=== PATIENT | female | born 1985 ===

== ENCOUNTER 2017-07-09 15:09 | Emergency (ER) | payer MEDICAID ==
[2017-07-09 15:21] VITALS: BP 117/80; PULSE 71; RESP 18; TEMP 98; O2SAT 100
--- NOTE | 2017-07-09 15:54 | C.PDOC ---
History Of Present Illness I went to see this patient as soon as I signed up for her, however I could not find her anywhere in the ED. I was informed by the staff that the pt has left before being seen. Time Seen by Provider: 07/09/17 15:40 Chief Complaint (Nursing): Substance Abuse Past Medical History Vital Signs: Last Vital Signs Temp 98 F 07/09/17 15:15 Pulse 71 07/09/17 15:15 Resp 18 07/09/17 15:15 BP 117/80 07/09/17 15:15 Pulse Ox 100 07/09/17 15:15 - Medical History PMH: Asthma, Depression, HTN, Post Traumatic Stress Disorder Family History: States: Unknown Family Hx - Social History Hx Alcohol Use: No Hx Substance Use: Yes - Immunization History Hx Tetanus Toxoid Vaccination: Yes Hx Influenza Vaccination: Yes Hx Pneumococcal Vaccination: No ED Course And Treatment O2 Sat by Pulse Oximetry: 100 Disposition - Disposition Disposition: LEFT W/O BEING SEEN - ER ONLY Disposition Time: 15:54 Condition: UNKNOWN - Clinical Impression Clinical Impression: Patient left without being seen
== END 2017-07-09 15:55 | disposition left against medical advice (07) ==
LOC: C.ER 15:09
DX: Z02.89 Encounter for other administrative examinations (principal); Z00.00 Encounter for general adult medical examination without abnormal findings

== ENCOUNTER 2017-07-25 12:04 | Emergency (ER) | payer MEDICAID ==
[2017-07-25 13:07] VITALS: BP 124/82; PULSE 99; RESP 20; TEMP 98; O2SAT 96
--- NOTE | 2017-07-25 13:12 | C.PDOC ---
History Of Present Illness 31 year old female, whose PMHx includes Asthma, Hepatitis C, HTN, and depression , presents to the ED accompanied by DYFS worker and her colleague requesting heroin detox. Patient states her last use was earlier today. She reports areas of redness to her right hand, left arm, and left calf and admits that these are sites of injection. She denies fever, chills, headache, chest pain, shortness of breath, suicidal/homicidal ideation at this time. Time Seen by Provider: 07/25/17 12:25 Chief Complaint (Nursing): Substance Abuse History Per: Patient History/Exam Limitations: no limitations Onset/Duration Of Symptoms: Hrs Current Symptoms Are (Timing): Still Present Suicide/Self Injury Attempted (Context): None Modifying Factor(s): Narcotics (heroin) Associated Symptoms: denies: Suicidal Thoughts, Suicidal Plan Involuntary Hold By: None Recent travel outside of the [place]: No Additional History Per: Patient Past Medical History Reviewed: Historical Data, Nursing Documentation, Vital Signs Vital Signs: Last Vital Signs Temp 98.0 F 07/25/17 12:28 Pulse 99 H 07/25/17 12:28 Resp 20 07/25/17 12:28 BP 124/82 07/25/17 12:28 Pulse Ox 96 07/25/17 13:53 - Medical History PMH: Asthma, Depression, Hepatitis (C), HTN, Post Traumatic Stress Disorder Surgical History: No Surg Hx Family History: States: Unknown Family Hx - Social History Hx Alcohol Use: No Hx Substance Use: Yes - Immunization History Hx Tetanus Toxoid Vaccination: No Hx Influenza Vaccination: No Hx Pneumococcal Vaccination: No Review Of Systems Constitutional: Negative for: Fever, Chills Cardiovascular: Negative for: Chest Pain Respiratory: Negative for: Shortness of Breath Neurological: Negative for: Headache Psych: Positive for: Other (heroin detox ). Negative for: Suicidal ideation Physical Exam - Physical Exam Appears: Non-toxic, No Acute Distress, Other (groggy, obese ) Skin: Warm, Dry, Other (round, erythematous patches to dorsum of right hand, volar aspect of left arm, and left calf) Head: Atraumatic, Normacephalic Eye(s): bilateral: Normal Inspection Oral Mucosa: Moist Neck: Supple Chest: Symmetrical, No Deformity, No Tenderness Cardiovascular: Rhythm Regular, No Murmur Respiratory: Normal Breath Sounds, No Rales, No Rhonchi, No Wheezing Extremity: Normal ROM, Capillary Refill (less than 2 seconds ) Neurological/Psych: Oriented x3, Normal Speech, Normal Cognition ED Course And Treatment O2 Sat by Pulse Oximetry: 96 (on RA) Pulse Ox Interpretation: Normal Medical Decision Making Medical Decision Making: Progress: Patient is informed about the unavailability of detox beds at this time. She will be provided with a list of detox centers for further inquiry. Advised to return to the ED if symptoms persist or worsen. Disposition Counseled Patient/Family Regarding: Diagnosis, Need For Followup, Rx Given - Disposition Referrals: [facility] [Outside] Disposition: HOME/ ROUTINE Disposition Time: 13:10 Condition: STABLE Additional Instructions: Follow up with your doctor, our clinic and the recourses given by the crisis team. Prescriptions: Sulfamethoxazole/Trimethoprim [Bactrim DS 800 mg-160 mg] 1 tab PO BID #14 tab Instructions: Cellulitis (Skin Infection), Adult (DC), Polysubstance Abuse (DC) Forms: General Discharge Instructions, [facility] (Macedonian), Work Excuse - POA Present On Arrival: None - Clinical Impression Clinical Impression: Drug abuse, Cellulitis - Scribe Statement The provider has reviewed the documentation as recorded by the Scribe (Deysi Duenas) Provider Attestation: All medical record entries made by the Scribe were at my direction and personally dictated by me. I have reviewed the chart and agree that the record accurately reflects my personal performance of the history, physical exam, medical decision making, and the department course for this patient. I have also personally directed, reviewed, and agree with the discharge instructions and disposition.
== END 2017-07-25 13:29 | disposition home or self-care (01) ==
LOC: C.ER 12:04
DX: F11.10 Opioid abuse, uncomplicated (principal); L03.113 Cellulitis of right upper limb; L03.114 Cellulitis of left upper limb; L03.116 Cellulitis of left lower limb

== ENCOUNTER 2018-01-13 22:43 | Inpatient (IN) | payer MEDICAID ==
[2018-01-13 23:50] LABS: BASO # 0.1 K/uL (0.0-0.2); BASO % 1.1 % (0.0-2.0); EOS # 0.3 K/uL (0.0-0.7); EOS % 4.3 % (0.0-4.0); HEMOGLOBIN 11.8 g/dL (11.0-16.0); LYMPH # 2.3 K/uL (1.0-4.3); LYMPH % 38.2 % (20.0-40.0); MEAN CELL VOLUME 87.2 fL (81.0-99.0); MEAN CORPUSCULAR HEMOGLOBIN 29.4 pg (27.0-31.0); MEAN CORPUSCULAR HGB CONC 33.7 g/dL (33.0-37.0); MEAN PLATELET VOLUME 8.3 fL (7.2-11.7); MONO # 0.5 K/uL (0.0-0.8); MONO % 9.1 % (0.0-10.0); NEUT # 2.8 K/uL (1.8-7.0); NEUT % 47.3 % (50.0-75.0); NRBC % 0.1 % (0.0-2.0); RBC 4.02 Mil/uL (3.80-5.20); WHITE BLOOD COUNT 5.9 K/uL (4.8-10.8)
[2018-01-14 00:01] LABS: SQUAMOUS EPITHIAL 36 /hpf (0-5); URINE BACTERIA RARE (<OCC); URINE BILIRUBIN NEGATIVE (NEGATIVE); URINE BLOOD NEGATIVE (NEGATIVE); URINE CALCIUM OXALATE CRYSTALS FEW /hpf (<OCC); URINE CLARITY Hazy (Clear); URINE COLOR Amber (YELLOW); URINE GLUCOSE (UA) NORMAL (Normal); URINE LEUKOCYTE ESTERASE 2+ Leu/uL (Negative); URINE PROTEIN NEGATIVE (NEGATIVE)
[2018-01-14 00:03] LABS: ACETAMINOPHEN < 10.0 ug/mL (10.0-30.0); ALB/GLOB RATIO 1.1 (1.0-2.1); ALBUMIN 4.1 g/dL (3.5-5.0); ALT/SGPT 56 U/L (9-52); AST/SGOT 49 U/L (14-36); BLOOD UREA NITROGEN 16 mg/dL (7-17); CALCIUM 9.6 mg/dl (8.6-10.4); GFR NON-AFRICAN AMERICAN > 60; SALICYLATE < 1.0 [, mg/dL 1]
[2018-01-14 00:04] LABS: BARBITURATES, UR NEGATIVE (NEGATIVE); PHENCYCLIDINE, UR NEGATIVE (NEGATIVE)
[2018-01-14 00:14] LABS: BENZODIAZEPINES, UR POSITIVE (NEGATIVE); OPIATES, UR POSITIVE (NEGATIVE)
--- NOTE | 2018-01-14 00:35 | C.PDOC ---
History Of Present Illness <MejiaJonnathanVignesh - Last Filed: 01/14/18 00:53> <Parminder Negron - Last Filed: 01/14/18 03:18> 32 y/o female presents to the ED for psychiatric evaluation due to suicidal ideation. Patient also has a hx of heroin abuse. States she wants to kill herself, with no plan. Otherwise patient denies any HI, hallucinations, or other complaints. Patient offers no physical complaints. (Abelardo Ba) History Per: Patient History/Exam Limitations: no limitations Onset/Duration Of Symptoms: Days Current Symptoms Are (Timing): Still Present Associated Symptoms: Suicidal Thoughts. denies: Suicidal Plan <MejiaJonnathanVignesh - Last Filed: 01/14/18 00:53> <Parminder Negron - Last Filed: 01/14/18 03:18> Time Seen by Provider: 01/13/18 23:26 Chief Complaint (Nursing): Psychiatric Evaluation Past Medical History Reviewed: Historical Data, Nursing Documentation, Vital Signs - Medical History PMH: Asthma, Depression, Hepatitis (C), HTN, Post Traumatic Stress Disorder Family History: States: Unknown Family Hx - Social History Hx Alcohol Use: No Hx Substance Use: Yes (on Methadone) - Immunization History Hx Tetanus Toxoid Vaccination: Yes Hx Influenza Vaccination: Yes Hx Pneumococcal Vaccination: No <MejiaAbelardoVignesh - Last Filed: 01/14/18 00:53> Vital Signs: Last Vital Signs Temp 98.2 F 01/13/18 22:50 Pulse 74 01/13/18 22:50 Resp 20 01/13/18 22:50 BP 180/117 H 01/13/18 22:50 Pulse Ox 97 01/14/18 00:54 Review Of Systems Except As Marked, All Systems Reviewed And Found Negative. Constitutional: Negative for: Fever Cardiovascular: Negative for: Chest Pain Respiratory: Negative for: Shortness of Breath Gastrointestinal: Negative for: Vomiting Skin: Negative for: Rash, Lesions Psych: Positive for: Suicidal ideation (with no plan). Negative for: Psychosis , Other (hallucinations) <MejiaAbelardoVignesh - Last Filed: 01/14/18 00:53> Physical Exam - Physical Exam Appears: Non-toxic, No Acute Distress, Other (Obese female) Skin: Warm, Dry, Other (No track cheema noted) Head: Atraumatic, Normacephalic Eye(s): bilateral: Normal Inspection Oral Mucosa: Moist Neck: Normal ROM Chest: Symmetrical Cardiovascular: Rhythm Regular, No Murmur Respiratory: Normal Breath Sounds, No Accessory Muscle Use Gastrointestinal/Abdominal: Soft, No Tenderness, No Distention Extremity: Bilateral: Atraumatic, Normal Color And Temperature, Normal ROM Neurological/Psych: Oriented x3, Normal Speech, Other (Flat affect) <Abelardo Ba - Last Filed: 01/14/18 00:53> ED Course And Treatment - Laboratory Results Result Diagrams: 01/13/18 23:45 01/13/18 23:45 Lab Interpretation: Abnormal (tox + cocaine, opiates, methadone) Urine POC: Negative O2 Sat by Pulse Oximetry: 97 (RA) Pulse Ox Interpretation: Normal Reevaluation Time: 00:53 Reassessment Condition: Unchanged <Abelardo Ba - Last Filed: 01/14/18 00:53> - Laboratory Results Result Diagrams: 01/13/18 23:45 01/13/18 23:45 <Parminder Negron - Last Filed: 01/14/18 03:18> Medical Decision Making <Abelardo Ba - Last Filed: 01/14/18 00:53> <Parminder Negron - Last Filed: 01/14/18 03:18> Medical Decision Making: Initial Plan: --Blood work --UA --Urine preg --1:1 observation --Crisis eval (Abelardo Ba) Accepted by CRISIS to Dr. Garcia Questionable UTI on labs: contaminated sample Will RX and order UC- will likely need following by inpt team Otherwise medically clear (Parminder Negron) Disposition - Disposition Disposition Time: 01:00 <Abelardo Ba - Last Filed: 01/14/18 00:53> <Parminder Negron - Last Filed: 01/14/18 03:18> - Disposition Disposition: HOSPITALIZED Condition: GOOD Instructions: Depression Forms: [facility] (Iranian) - Clinical Impression Clinical Impression: Polysubstance abuse, Suicidal ideation - Scribe Statement The provider has reviewed the documentation as recorded by the Scribe <Abelardo Ba - Last Filed: 01/14/18 00:53> <Parminder Negron - Last Filed: 01/14/18 03:18> - Scribe Statement Shonda Meneses (Abelardo Ba) Provider Attestation: All medical record entries made by the Scribe were at my direction and personally dictated by me. I have reviewed the chart and agree that the record accurately reflects my personal performance of the history, physical exam, medical decision making, and the department course for this patient. I have also personally directed, reviewed, and agree with the discharge instructions and disposition. (Abelardo Ba) Physician Patient Turnover Patient Signed Over To: Parminder Negron Handoff Comments: dispo per Crisis eval <Abelardo Ba - Last Filed: 01/14/18 00:53> Addendum <Abelardo Ba - Last Filed: 01/14/18 00:53> <Parminder Negron - Last Filed: 01/14/18 03:18> Addendum: 01/14/18 01:00 Patient endorsed to me by Dr. Ba. 03:05 Discussed with flour worker, patient accepted to Dr. Garcia's service for major depressive disorder and opiate abuse. (Parminder Negron)
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
--- NOTE | 2018-01-14 11:08 | PCM.BM ---
<Doreen Miles - Last Filed: 01/14/18 11:03> Treatment Plan Problems - Problems identified on initial assessmt Depression Date Initiated: 01/14/18 Time Initiated: 11:04 Assessment reference: NA Status: Active Substance Abuse Date Initiated: 01/14/18 Time Initiated: 11:04 Assessment reference: NA Status: Active Treatment assets and liabiliti Patient Assests: cooperative, ADL independent, physically healthy, negotiates basic needs, cognitively intact Patient Liabilities: live alone (Homeless), financial problems, substance abuse (Opiates, Methadone, Cocaine and Benzo), medical problems (+Hep C, HTN, Asthma) - Milieu Protocol Maintain good personal hygiene: daily Encourage regular showers, daily Remind patient to perform daily oral care, daily Assist patient to perform ADL's (Self) Conduct patient checks and document Observation sheet: Q15 minutes (Safety) Maintain personal safety: every shift Educate patient to report safety concerns to staff, every shift Monitor environment for contraband/sharps Medication safety: Monitor for expected outcome, potential side effects: every shift, Assess barriers to learning: every shift, Assess readiness for medication education: every shift <Luke Estrada - Last Filed: 01/15/18 10:48> - Diagnosis (1) Bipolar 1 disorder Status: Acute Interventions: 01/15/18 10:49 * Assess/adjust medications daily and /or as needed * See patient on an individual basis 7x/week to assess level of manic behaviors and stability * Discuss risks, benefits, side effects and alternatives of medications * (2) Drug abuse Status: Acute Interventions: 01/15/18 10:49 * Assess/adjust medications daily and /or as needed * See patient on an individual basis 7x/week to assess symptoms of depression * Monitor for side effects & effectiveness of medications * <Florencia Blanca - Last Filed: 01/15/18 15:39> Family Contact Family involvement: Patient does not wish Family/SO involvement Family contact: Patient declines to allow family contact at present - Goals for Treatment Patient goals for treatment: "I want to go to a rehab program." Discharge/Continuing Care - Education Needs Education Needs: Patient Medication, Patient Diagnosis/Disease Process, Patient Coping Skills - Discharge Discharge Criteria: Free of Suicidal thoughts, Normal sleep pattern, Ability to care for self, No longer exhibiting s/s of withdrawal, Reduction of target symptoms Discharge to:: Substance Abuse Rehab - Treatment Team Participation Discussed with Family/SO: No Was Patient/Family/SO present at Treatment Team Meeting: Yes
[2018-01-14] MEDS ORDERED: Methadone 40 mg Tab PO ONE (11:44)
--- NOTE | 2018-01-14 13:32 | CP.PCM.CON ---
<Reddy Cifuentes - Last Filed: 01/14/18 13:57> History of Present Illness - History of Present Illness History of Present Illness: PGY-[address] Osito Duenas Patient is a 32 year old female who came to [facility] ED after relapsing on heroin. She is being managed on 5E for opioid withdrawal as well as sudicial ideations which she has expressed. Medicine is consulted for a new rash that patient states developed last night when the patient was in the emergency room. At that time, patient had been treated with nitrofurantoin for a UTI that was discovered on UA. The patient states that the rash began on her arms b/l and then moved to her stomach, lower extremities, and back. Patient denies every experiencing any shortness of breath, lip or tongue swelling, voice changes, odynophagia or dysphagia. She has never had a rash like this in the past. The patient has an allergy only to penicillin, though she does not know what kind of reaction she has to this as she states she was told by her mother about this allergy when she was very young. Patient denies any new soaps, shampoos, detergents, or fragrances. She denies any recent history of travel. Pt denies any urinary symptoms at present. She is complaining only that she "feels sick" from withdrawing from heroin. Pt denies chest pain, headache, dizziness, shortness of breath, fever, chills, nausea, vomiting. Review of Systems - Constitutional Constitutional: absent: Chills, Fatigue, Fever - EENT Eyes: absent: Blurred Vision, Change in Vision Nose/Mouth/Throat: absent: Nasal Congestion, Nasal Discharge - Cardiovascular Cardiovascular: absent: Chest Pain, Dyspnea, Leg Edema - Respiratory Respiratory: absent: Cough, Dyspnea - Gastrointestinal Gastrointestinal: absent: Abdominal Pain, Nausea, Vomiting - Musculoskeletal Musculoskeletal: absent: Back Pain, Neck Pain - Neurological Neurological: absent: Dizziness, Numbness, Headaches - Psychiatric Psychiatric: Depression, Suicidal Ideation - Endocrine Endocrine: absent: Cold Intolorance, Palpitations Past Patient History - Past Social History Smoking Status: Heavy Smoker > 10 Cigarettes Daily - CARDIAC Hx Cardiac Disorders: No Hx Hypertension: Yes - PULMONARY Hx Asthma: Yes Hx Tuberculosis: No - NEUROLOGICAL HX Cerebrovascular Accident: No Hx Seizures: No - HEMATOLOGICAL/ONCOLOGICAL Hx Cancer: No Hx Hepatitis C: Yes Hx Human Immunodeficiency Virus (HIV): No - GENITOURINARY/GYNECOLOGICAL Hx Sexually Transmitted Disorders: No - PSYCHIATRIC Hx Substance Use: Yes (Cocaine, Opiates, Methadone and Benzo) - SURGICAL HISTORY Hx Surgeries: Yes Hx Section: Yes (3x) - ANESTHESIA Hx Anesthesia: Yes Hx Anesthesia Reactions: No Hx Malignant Hyperthermia: No Meds Allergies/Adverse Reactions: Allergies Allergy/AdvReac Type Severity Reaction Status Date / Time Penicillins Allergy ANAPHYLAXIS Verified 11/28/17 13:09 - Medications Medications: Current Medications Al Hydrox/Mg Hydrox/Simethicone (Maalox 30 Ml) 30 ml PO TID PRN PRN Reason: Indigestion / Heartburn Hydrocortisone (Cortizone 2.5%) 0 gm TOP BID [facility] Stop: 01/21/18 23:59 Hydroxyzine HCl (Atarax) 25 mg PO Q6 PRN PRN Reason: Anxiety Last Admin: 01/14/18 12:11 Dose: 25 mg Loperamide HCl (Imodium) 2 mg PO Q8 PRN PRN Reason: Diarrhea Last Admin: 01/14/18 12:11 Dose: 2 mg Methadone HCl (Methadone) 5 mg PO Q12 PRN PRN Reason: Opioid Withdrawal Symptoms Methadone HCl (Methadone) 50 mg PO DAILY [facility] PRN Reason: Taper Stop: 01/20/18 09:59 Ondansetron HCl (Zofran Tab) 4 mg PO Q8 PRN PRN Reason: Nausea/Vomiting Last Admin: 01/14/18 12:11 Dose: 4 mg Pneumococcal Polyvalent Vaccine (Pneumovax 23 Vaccine) 0.5 ml IM .ONCE ONE Stop: 01/17/18 10:01 Potassium Chloride (K-Dur 20 Meq Er Tab) 20 meq PO ONCE ONE Stop: 01/15/18 13:24 Pseudoephedrine HCl (Sudafed Tab) 60 mg PO QID PRN PRN Reason: Nasal/Sinus Congestion Trazodone HCl (Desyrel) 50 mg PO HS [facility] Physical Exam - Constitutional Appears: Non-toxic, No Acute Distress - Head Exam Head Exam: ATRAUMATIC, NORMOCEPHALIC - Eye Exam Eye Exam: EOMI, PERRL Pupil Exam: NORMAL ACCOMODATION, PERRL - ENT Exam ENT Exam: Mucous Membranes Moist Additional comments: No facial swelling, lip swelling. Oropharynx appears normal, airway is visible, uvula is normal and midline. - Respiratory Exam Respiratory Exam: Clear to Auscultation Bilateral, NORMAL BREATHING PATTERN. absent: Rales, Rhonchi, Wheezes - Cardiovascular Exam Cardiovascular Exam: REGULAR RHYTHM, RRR, +S1, +S2. absent: JVD, Systolic Murmur - GI/Abdominal Exam GI & Abdominal Exam: Normal Bowel Sounds, Soft. absent: Tenderness - Extremities Exam Additional comments: +rash, track cheema (see skin exam) - Back Exam Back exam: NORMAL INSPECTION. absent: paraspinal tenderness - Neurological Exam Neurological exam: Alert, CN II-XII Intact, Oriented x3 - Psychiatric Exam Psychiatric exam: Depressed, Flat Affect - Skin Skin Exam: Dry, Intact Additional comments: +Non-blanchable flat, macular rash on arms, legs, and abdomen. Old skin changes present on legs. Track cheema with scabbing evident on ventral surface of upper extremities. Results - Vital Signs Recent Vital Signs: Last Vital Signs Temp 98.7 F 01/14/18 09:13 Pulse 75 01/14/18 09:13 Resp 18 01/14/18 12:17 BP 152/103 H 01/14/18 09:13 Pulse Ox 98 01/14/18 08:47 - Labs Result Diagrams: 01/13/18 23:45 01/13/18 23:45 Labs: Laboratory Results - last 24 hr 01/13/18 01/13/18 01/13/18 23:45 23:45 23:45 WBC 5.9 RBC 4.02 Hgb 11.8 Hct 35.1 MCV 87.2 MCH 29.4 MCHC 33.7 RDW 16.0 H Plt Count 254 MPV 8.3 Neut % (Auto) 47.3 L Lymph % (Auto) 38.2 Waldo % (Auto) 9.1 Eos % (Auto) 4.3 H Baso % (Auto) 1.1 Neut # (Auto) 2.8 Lymph # (Auto) 2.3 Waldo # (Auto) 0.5 Eos # (Auto) 0.3 Baso # (Auto) 0.1 Sodium 145 Potassium 3.2 L Chloride 104 Carbon Dioxide 29 Anion Gap 15 BUN 16 Creatinine 0.6 L Est GFR ( Amer) > 60 Est GFR (Non-Af Amer) > 60 Random Glucose 89 Calcium 9.6 Phosphorus Magnesium Total Bilirubin 0.6 AST 49 H D ALT 56 H Alkaline Phosphatase 100 Total Protein 7.9 Albumin 4.1 Globulin 3.7 Albumin/Globulin Ratio 1.1 Urine Color Teodora Urine Clarity Hazy Urine pH 6.0 Ur Specific [place] 1.025 Urine Protein Negative Urine Glucose (UA) Normal Urine Ketones Negative Urine Blood Negative Urine Nitrate Negative Urine Bilirubin Negative Urine Urobilinogen 4.0 H Ur Leukocyte Esterase 2+ H Urine WBC (Auto) 96 H Urine RBC (Auto) 7 H Ur Squamous Epith Cells 36 H Calcium Oxalate Crystal Few H Urine Bacteria Rare Urine HCG, Qual Salicylates Urine Opiates Screen Urine Methadone Screen Acetaminophen Ur Barbiturates Screen Ur Phencyclidine Scrn Ur Amphetamines Screen U Benzodiazepines Scrn U Oth Cocaine Metabols U Cannabinoids Screen Alcohol, Quantitative < 10 01/13/18 01/13/18 01/13/18 23:45 23:45 23:45 WBC RBC Hgb Hct MCV MCH MCHC RDW Plt Count MPV Neut % (Auto) Lymph % (Auto) Waldo % (Auto) Eos % (Auto) Baso % (Auto) Neut # (Auto) Lymph # (Auto) Waldo # (Auto) Eos # (Auto) Baso # (Auto) Sodium Potassium Chloride Carbon Dioxide Anion Gap BUN Creatinine Est GFR ( Amer) Est GFR (Non-Af Amer) Random Glucose Calcium Phosphorus 4.1 Magnesium 2.0 Total Bilirubin AST ALT Alkaline Phosphatase Total Protein Albumin Globulin Albumin/Globulin Ratio Urine Color Urine Clarity Urine pH Ur Specific [place] Urine Protein Urine Glucose (UA) Urine Ketones Urine Blood Urine Nitrate Urine Bilirubin Urine Urobilinogen Ur Leukocyte Esterase Urine WBC (Auto) Urine RBC (Auto) Ur Squamous Epith Cells Calcium Oxalate Crystal Urine Bacteria Urine HCG, Qual Salicylates < 1.0 Urine Opiates Screen Positive H Urine Methadone Screen Positive H Acetaminophen < 10.0 L Ur Barbiturates Screen Negative Ur Phencyclidine Scrn Negative Ur Amphetamines Screen Negative U Benzodiazepines Scrn Positive U Oth Cocaine Metabols Positive H U Cannabinoids Screen Negative Alcohol, Quantitative 01/13/18 23:45 WBC RBC Hgb Hct MCV MCH MCHC RDW Plt Count MPV Neut % (Auto) Lymph % (Auto) Wal[place] % (Auto) Eos % (Auto) Baso % (Auto) Neut # (Auto) Lymph # (Auto) Waldo # (Auto) Eos # (Auto) Baso # (Auto) Sodium Potassium Chloride Carbon Dioxide Anion Gap BUN Creatinine Est GFR ( Amer) Est GFR (Non-Af Amer) Random Glucose Calcium Phosphorus Magnesium Total Bilirubin AST ALT Alkaline Phosphatase Total Protein Albumin Globulin Albumin/Globulin Ratio Urine Color Urine Clarity Urine pH Ur Specific [place] Urine Protein Urine Glucose (UA) Urine Ketones Urine Blood Urine Nitrate Urine Bilirubin Urine Urobilinogen Ur Leukocyte Esterase Urine WBC (Auto) Urine RBC (Auto) Ur Squamous Epith Cells Calcium Oxalate Crystal Urine Bacteria Urine HCG, Qual Negative Salicylates Urine Opiates Screen Urine Methadone Screen Acetaminophen Ur Barbiturates Screen Ur Phencyclidine Scrn Ur Amphetamines Screen U Benzodiazepines Scrn U Oth Cocaine Metabols U Cannabinoids Screen Alcohol, Quantitative Assessment & Plan - Assessment and Plan (Free Text) Assessment: Medicine was consulted for a pruritic macular rash that patient states began on day of admission. Pruritic Rash, likely reaction to medication -Possibly allergic reaction/urticaria - No evidence of acute shortness of breath , lip, tongue, or facial swelling per history and physical -Macrobid discontinued -> Cipro 500 mg PO BID -Hydrocortisone 2.5% BID UTI -Cipro 500 mg PO BID Opioid Withdrawal/MDD with Psychotic Fx/Suicidal Ideation -Psych Managing - Dr. Garcia Dispo: Medicine consulted for rash, which is likely medication-related. Macrobid stopped and Cipro started for treatement of UTI. Hydrocortisone 2.5% topical BID. Assessment/Plan d/w Dr. Osito Cifuentes, PGY-1 <Osito Duenas J - Last Filed: 01/16/18 19:51> Meds - Medications Medications: Current Medications Al Hydrox/Mg Hydrox/Simethicone (Maalox 30 Ml) 30 ml PO TID PRN PRN Reason: Indigestion / Heartburn Last Admin: 01/14/18 17:50 Dose: 30 ml Ciprofloxacin (Cipro) 500 mg PO ONCE ONE PRN Reason: Protocol Stop: 01/17/18 08:01 Ciprofloxacin (Cipro) 500 mg PO ONCE ONE PRN Reason: Protocol Stop: 01/17/18 18:01 Clonidine HCl (Catapres) 0.2 mg PO Q8 PRN PRN Reason: Agitation Last Admin: 01/15/18 20:00 Dose: 0.2 mg Divalproex Sodium (Depakote Dr) 250 mg PO BID [facility] Last Admin: 01/16/18 17:36 Dose: 250 mg Hydrocortisone (Cortizone 2.5%) 0 gm TOP BID [facility] Stop: 01/21/18 23:59 Last Admin: 01/16/18 17:38 Dose: Not Given Hydroxyzine HCl (Atarax) 25 mg PO Q6 PRN PRN Reason: Anxiety Last Admin: 01/16/18 09:56 Dose: 25 mg Loperamide HCl (Imodium) 2 mg PO Q8 PRN PRN Reason: Diarrhea Last Admin: 01/14/18 12:11 Dose: 2 mg Lorazepam (Ativan) 1 mg PO TID PRN PRN Reason: Agitation Last Admin: 01/16/18 18:41 Dose: 1 mg Methadone HCl (Methadone) 40 mg PO DAILY [facility] PRN Reason: Taper Stop: 01/20/18 09:59 Last Admin: 01/16/18 09:55 Dose: 40 mg Methadone HCl (Methadone) 5 mg PO DAILY [facility] Stop: 01/20/18 23:59 Last Admin: 01/16/18 09:55 Dose: 5 mg Methadone HCl (Methadone) 5 mg PO RQ6 PRN PRN Reason: Symptoms of alcohol withdrawl Last Admin: 01/15/18 17:42 Dose: 5 mg Ondansetron HCl (Zofran Tab) 4 mg PO Q8 PRN PRN Reason: Nausea/Vomiting Last Admin: 01/14/18 12:11 Dose: 4 mg Pneumococcal Polyvalent Vaccine (Pneumovax 23 Vaccine) 0.5 ml IM .ONCE ONE Stop: 01/17/18 10:01 Pseudoephedrine HCl (Sudafed Tab) 60 mg PO QID PRN PRN Reason: Nasal/Sinus Congestion Quetiapine Fumarate (Seroquel) 100 mg PO HS [facility] Last Admin: 01/15/18 21:05 Dose: 100 mg Sertraline HCl (Zoloft) 25 mg PO DAILY [facility] Last Admin: 01/16/18 09:55 Dose: 25 mg Trazodone HCl (Desyrel) 50 mg PO HS [facility] Last Admin: 01/15/18 21:01 Dose: Not Given Results - Vital Signs Recent Vital Signs: Last Vital Signs Temp 97.5 F L 01/16/18 06:36 Pulse 77 01/16/18 16:10 Resp 20 01/16/18 06:36 BP 128/86 01/16/18 16:10 Pulse Ox 98 01/15/18 19:59 - Labs Result Diagrams: 01/15/18 08:33 01/15/18 08:33 Attending/Attestation - Attestation I have personally seen and examined this patient.: Yes I have fully participated in the care of the patient.: Yes I have reviewed all pertinent clinical information: Yes Notes (Text): 01/16/18 19:50 This is a late entry History, physical, assessment and plan were gone over with the resident. Osito Duenas D.O.
[2018-01-14] MEDS: Aluminum Hydroxide/Magnesium Hydroxide Susp (30 mL) PO PRN (17:50)
[2018-01-14] MEDS: Hydrocortisone 2.5% Oint (20 gm) TOP SCH (17:50)
--- NOTE | 2018-01-15 08:48 | PCM.PYCHPN ---
Psychiatric Progress Note - Psychiatric Progress Note Patient seen today, length of contact: 15 min Patient Chief Complaint: "Not feeling good" Problems Identified/Issues Discussed: The pt is seen, chart reviewed, case discussed with staff. Pt reports depressed mood, and reports feelings of hopelessness and helplessness. She still reports irritability and agitation. Pt was not able to sleep well or eat properly. Pt still presenting with SI, but denies HI. The pt is compliant with medications but still present with side effects--nausea , dizziness, sweats, and anxiety Pt's rash on her back, arms and legs is subsiding. Pt needs more time to stabilize. Pt attends groups and activities. Support given, psycho-education provided. After care discussed. Medication Change: Yes Medical Record Reviewed: Yes Mental Status Examination - Cognitive Function Orientation: Person, Place, Situation, Time Memory: Intact Attention: WNL Concentration: Poor Association: WNL Fund of Knowledge: Poor - Mood Mood: Depressed, Anxious - Affect Affect: Constricted, Depressed - Speech Speech: Soft - Formal Thought Process Formal Thought Process: Hallucinations - Suicidal Ideation Suicidal Ideation: No - Homicidal Ideation Homicidal Ideation: No Goal/Treatment Plan - Goal/Treatment Plan Need for Continued Stay: Severe depression anxiety, Severe functional impairment Progress Toward Problem(s) and Goals/Treatment Plan: Bipolar disorder depressed severe with psychotic features Opioid withdrawal Opioid use disorder, severe Cocaine use disorder severe MTD taper Atarax Seroquel 100 mg Start Zoloft 25 mg pO Q Daily As need medications All risks, benefits and alternatives of the meds discussed, and the pt agreed and understood. Attend groups and activities Individual therapy daily Psychoeducation and support daily Encourage compliance with meds and after care Refer to outpatient program Teach healthy lifestyle methods, i.e. diet, exercise, meditation Smoking cessation and patch if needed
[2018-01-15 08:50] LABS: BASO % 1.2 % (0.0-2.0); EOS # 0.1 K/uL (0.0-0.7); EOS % 3.4 % (0.0-4.0); HEMOGLOBIN 12.1 g/dL (11.0-16.0); LYMPH # 1.3 K/uL (1.0-4.3); LYMPH % 35.1 % (20.0-40.0); MEAN CELL VOLUME 85.9 fL (81.0-99.0); MEAN CORPUSCULAR HEMOGLOBIN 29.3 pg (27.0-31.0); MEAN CORPUSCULAR HGB CONC 34.1 g/dL (33.0-37.0); MEAN PLATELET VOLUME 8.1 fL (7.2-11.7); MONO # 0.5 K/uL (0.0-0.8); MONO % 11.8 % (0.0-10.0); NEUT # 1.9 K/uL (1.8-7.0); NEUT % 48.5 % (50.0-75.0); NRBC % 0.1 % (0.0-2.0); RBC 4.15 Mil/uL (3.80-5.20); RED CELL DISTRIBUTION WIDTH 16.4 % (11.5-14.5); WHITE BLOOD COUNT 3.8 K/uL (4.8-10.8)
[2018-01-15 09:17] LABS: ALB/GLOB RATIO 1.1 (1.0-2.1); ALBUMIN 3.9 g/dL (3.5-5.0); ALT/SGPT 65 U/L (9-52); AST/SGOT 53 U/L (14-36); BLOOD UREA NITROGEN 14 mg/dL (7-17); CALCIUM 9.3 mg/dl (8.6-10.4); GFR NON-AFRICAN AMERICAN > 60
--- NOTE | 2018-01-15 09:28 | CP.PCM.PN ---
<Dyllan Najera - Last Filed: 01/15/18 14:51> Subjective - Date & Time of Evaluation Date of Evaluation: 01/15/18 Time of Evaluation: 09:28 - Subjective Subjective: PGY1 Progress Note for Osito Rolon Patient seen and evaluated at bedside this morning. Patient is was asleep at time of evaluation. Patient denies any acute events overnight. Patient denies new complaints. Patient says the rash on arms and legs has not changed in appearance, but she no longer has the urge to scratch and denies pruritus. Patient otherwise denies chest pain, shortness of breath, dizziness, blurry vision, dysuria, constipation and/or lower extremity edema. Patient says that she has been going through withdrawals today, but denies current complaints. Objective - Vital Signs/Intake and Output Vital Signs (last 24 hours): Temp Pulse Resp BP Pulse Ox 97.6 F 63 18 151/94 H 98 01/15/18 06:47 01/15/18 06:47 01/15/18 06:47 01/15/18 06:47 01/14/18 08:47 - Medications Medications: Current Medications Al Hydrox/Mg Hydrox/Simethicone (Maalox 30 Ml) 30 ml PO TID PRN PRN Reason: Indigestion / Heartburn Last Admin: 01/14/18 17:50 Dose: 30 ml Ciprofloxacin (Cipro) 500 mg PO BID [facility] PRN Reason: Protocol Last Admin: 01/14/18 17:49 Dose: 500 mg Hydrocortisone (Cortizone 2.5%) 0 gm TOP BID [facility] Stop: 01/21/18 23:59 Last Admin: 01/14/18 17:50 Dose: 1 dose Hydroxyzine HCl (Atarax) 25 mg PO Q6 PRN PRN Reason: Anxiety Last Admin: 01/15/18 06:59 Dose: 25 mg Loperamide HCl (Imodium) 2 mg PO Q8 PRN PRN Reason: Diarrhea Last Admin: 01/14/18 12:11 Dose: 2 mg Methadone HCl (Methadone) 50 mg PO DAILY [facility] PRN Reason: Taper Stop: 01/20/18 09:59 Methadone HCl (Methadone) 5 mg PO DAILY [facility] Stop: 01/20/18 23:59 Ondansetron HCl (Zofran Tab) 4 mg PO Q8 PRN PRN Reason: Nausea/Vomiting Last Admin: 01/14/18 12:11 Dose: 4 mg Pneumococcal Polyvalent Vaccine (Pneumovax 23 Vaccine) 0.5 ml IM .ONCE ONE Stop: 01/17/18 10:01 Potassium Chloride (K-Dur 20 Meq Er Tab) 20 meq PO ONCE ONE Stop: 01/15/18 13:31 Pseudoephedrine HCl (Sudafed Tab) 60 mg PO QID PRN PRN Reason: Nasal/Sinus Congestion Quetiapine Fumarate (Seroquel) 100 mg PO HS [facility] Last Admin: 01/14/18 21:29 Dose: 100 mg Trazodone HCl (Desyrel) 50 mg PO HS [facility] Last Admin: 01/14/18 21:29 Dose: Not Given - Labs Labs: 01/15/18 08:33 01/15/18 08:33 - Additional Findings Additional findings: - Constitutional Appears: Non-toxic, No Acute Distress - Head Exam Head Exam: ATRAUMATIC, NORMOCEPHALIC - Eye Exam Eye Exam: EOMI, PERRL Pupil Exam: NORMAL ACCOMODATION, PERRL - ENT Exam ENT Exam: Mucous Membranes Moist Additional comments: No facial swelling, lip swelling. Oropharynx appears normal, airway is visible, uvula is normal and midline. - Respiratory Exam Respiratory Exam: Clear to Auscultation Bilateral, NORMAL BREATHING PATTERN. absent: Rales, Rhonchi, Wheezes - Cardiovascular Exam Cardiovascular Exam: REGULAR RHYTHM, RRR, +S1, +S2. absent: JVD, Systolic Murmur - GI/Abdominal Exam GI & Abdominal Exam: Normal Bowel Sounds, Soft. absent: Tenderness - Extremities Exam Additional comments: +rash, track cheema (see skin exam) - Back Exam Back exam: NORMAL INSPECTION. absent: paraspinal tenderness - Neurological Exam Neurological exam: Alert, CN II-XII Intact, Oriented x3 - Psychiatric Exam Psychiatric exam: Depressed, Flat Affect - Skin Skin Exam: Dry, Intact Additional comments: +Non-blanchable flat, macular rash on arms, legs, and abdomen. Old skin changes present on legs. Track cheema with scabbing evident on ventral surface of upper extremities. On closer inspection, papules are erythematous and specifically located at site of hair follicles. Assessment and Plan - Assessment and Plan (Free Text) Assessment: Assessment: Medicine was consulted for a pruritic macular rash that patient states began on day of admission. Pruritus has resolved, per patient. Pruritic Rash, likely secondary to folliculitis - No evidence of acute shortness of breath, lip, tongue, or facial swelling per history and physical - Macrobid discontinued -> Cipro 500 mg PO BID - Pruritus resolved with Hydrocortisone 2.5% BID, continue to apply UTI - Asymptomatic - Hemodynamically stable - No leukocytosis - Cipro 500 mg PO BID Hyperkalemia, resolved - K+ 3.2 --> 3.7 (01/15) - Replete with K-Dur PO as needed - Monitor Opioid Withdrawal/MDD with Psychotic Fx/Suicidal Ideation - Management per Psychiatry - Dr. Garcia Dispo: Medicine consulted for rash, which is likely due to folliculitis. Continue Cipro started for treatement of UTI. Continue Hydrocortisone 2.5% topical BID. Will continue to monitor patient. Discussed with Dr. Osito Najera PGY-1 <Osito Duenas - Last Filed: 01/16/18 19:49> Objective - Vital Signs/Intake and Output Vital Signs (last 24 hours): Temp Pulse Resp BP Pulse Ox 97.5 F L 77 20 128/86 98 01/16/18 06:36 01/16/18 16:10 01/16/18 06:36 01/16/18 16:10 01/15/18 19:59 - Medications Medications: Current Medications Al Hydrox/Mg Hydrox/Simethicone (Maalox 30 Ml) 30 ml PO TID PRN PRN Reason: Indigestion / Heartburn Last Admin: 01/14/18 17:50 Dose: 30 ml Ciprofloxacin (Cipro) 500 mg PO ONCE ONE PRN Reason: Protocol Stop: 01/17/18 08:01 Ciprofloxacin (Cipro) 500 mg PO ONCE ONE PRN Reason: Protocol Stop: 01/17/18 18:01 Clonidine HCl (Catapres) 0.2 mg PO Q8 PRN PRN Reason: Agitation Last Admin: 01/15/18 20:00 Dose: 0.2 mg Divalproex Sodium (Depakote Dr) 250 mg PO BID [facility] Last Admin: 01/16/18 17:36 Dose: 250 mg Hydrocortisone (Cortizone 2.5%) 0 gm TOP BID [facility] Stop: 01/21/18 23:59 Last Admin: 01/16/18 17:38 Dose: Not Given Hydroxyzine HCl (Atarax) 25 mg PO Q6 PRN PRN Reason: Anxiety Last Admin: 01/16/18 09:56 Dose: 25 mg Loperamide HCl (Imodium) 2 mg PO Q8 PRN PRN Reason: Diarrhea Last Admin: 01/14/18 12:11 Dose: 2 mg Lorazepam (Ativan) 1 mg PO TID PRN PRN Reason: Agitation Last Admin: 01/16/18 18:41 Dose: 1 mg Methadone HCl (Methadone) 40 mg PO DAILY [facility] PRN Reason: Taper Stop: 01/20/18 09:59 Last Admin: 01/16/18 09:55 Dose: 40 mg Methadone HCl (Methadone) 5 mg PO DAILY [facility] Stop: 01/20/18 23:59 Last Admin: 01/16/18 09:55 Dose: 5 mg Methadone HCl (Methadone) 5 mg PO RQ6 PRN PRN Reason: Symptoms of alcohol withdrawl Last Admin: 01/15/18 17:42 Dose: 5 mg Ondansetron HCl (Zofran Tab) 4 mg PO Q8 PRN PRN Reason: Nausea/Vomiting Last Admin: 01/14/18 12:11 Dose: 4 mg Pneumococcal Polyvalent Vaccine (Pneumovax 23 Vaccine) 0.5 ml IM .ONCE ONE Stop: 01/17/18 10:01 Pseudoephedrine HCl (Sudafed Tab) 60 mg PO QID PRN PRN Reason: Nasal/Sinus Congestion Quetiapine Fumarate (Seroquel) 100 mg PO HS [facility] Last Admin: 01/15/18 21:05 Dose: 100 mg Sertraline HCl (Zoloft) 25 mg PO DAILY [facility] Last Admin: 01/16/18 09:55 Dose: 25 mg Trazodone HCl (Desyrel) 50 mg PO HS [facility] Last Admin: 01/15/18 21:01 Dose: Not Given - Labs Labs: 01/15/18 08:33 01/15/18 08:33 Attending/Attestation - Attestation I have personally seen and examined this patient.: Yes I have fully participated in the care of the patient.: Yes I have reviewed all pertinent clinical information, including history, physical exam and plan: Yes Notes (Text): 01/16/18 19:44 This is a late entry Care of this patient was gone over in detail with the resident Osito Duenas D.O.
[2018-01-15] MEDS: Hydrocortisone 2.5% Oint (20 gm) TOP SCH ×3 (11:05→17:24)
[2018-01-15] MEDS ORDERED: Potassium Chloride 20 mEq ER Tab PO ONE (13:30)
--- NOTE | 2018-01-16 07:31 | CP.PCM.PN ---
<Dyllan Najera - Last Filed: 01/16/18 17:27> Subjective - Date & Time of Evaluation Date of Evaluation: 01/16/18 Time of Evaluation: 07:29 - Subjective Subjective: PGY1 Progress Note for Osito Rolon Patient seen and evaluated at bedside this morning. Patient denies any acute events overnight. Patient denies new complaints. Patient denies urge to scratch and denies pruritus. Patient otherwise denies chest pain, shortness of breath, dizziness, blurry vision, dysuria, constipation, hematuria, and/or dysuria. Objective - Vital Signs/Intake and Output Vital Signs (last 24 hours): Temp Pulse Resp BP Pulse Ox 97.5 F L 56 L 20 146/92 H 98 01/16/18 06:36 01/16/18 06:36 01/16/18 06:36 01/16/18 06:36 01/15/18 19:59 - Medications Medications: Current Medications Al Hydrox/Mg Hydrox/Simethicone (Maalox 30 Ml) 30 ml PO TID PRN PRN Reason: Indigestion / Heartburn Last Admin: 01/14/18 17:50 Dose: 30 ml Ciprofloxacin (Cipro) 500 mg PO BID [facility] PRN Reason: Protocol Last Admin: 01/15/18 17:22 Dose: 500 mg Clonidine HCl (Catapres) 0.2 mg PO Q8 PRN PRN Reason: Agitation Last Admin: 01/15/18 20:00 Dose: 0.2 mg Hydrocortisone (Cortizone 2.5%) 0 gm TOP BID [facility] Stop: 01/21/18 23:59 Last Admin: 01/15/18 17:24 Dose: Not Given Hydroxyzine HCl (Atarax) 25 mg PO Q6 PRN PRN Reason: Anxiety Last Admin: 01/15/18 06:59 Dose: 25 mg Loperamide HCl (Imodium) 2 mg PO Q8 PRN PRN Reason: Diarrhea Last Admin: 01/14/18 12:11 Dose: 2 mg Methadone HCl (Methadone) 50 mg PO DAILY [facility] PRN Reason: Taper Stop: 01/20/18 09:59 Last Admin: 01/15/18 10:29 Dose: 50 mg Methadone HCl (Methadone) 5 mg PO DAILY [facility] Stop: 01/20/18 23:59 Last Admin: 01/15/18 11:07 Dose: Not Given Methadone HCl (Methadone) 5 mg PO RQ6 PRN PRN Reason: Symptoms of alcohol withdrawl Last Admin: 01/15/18 17:42 Dose: 5 mg Ondansetron HCl (Zofran Tab) 4 mg PO Q8 PRN PRN Reason: Nausea/Vomiting Last Admin: 01/14/18 12:11 Dose: 4 mg Pneumococcal Polyvalent Vaccine (Pneumovax 23 Vaccine) 0.5 ml IM .ONCE ONE Stop: 01/17/18 10:01 Pseudoephedrine HCl (Sudafed Tab) 60 mg PO QID PRN PRN Reason: Nasal/Sinus Congestion Quetiapine Fumarate (Seroquel) 100 mg PO HS [facility] Last Admin: 01/15/18 21:05 Dose: 100 mg Sertraline HCl (Zoloft) 25 mg PO DAILY [facility] Trazodone HCl (Desyrel) 50 mg PO HS [facility] Last Admin: 01/15/18 21:01 Dose: Not Given - Labs Labs: 01/15/18 08:33 01/15/18 08:33 - Additional Findings Additional findings: - Constitutional Appears: Non-toxic, No Acute Distress - ENT Exam ENT Exam: Mucous Membranes Moist Additional comments: No facial swelling, lip swelling. Oropharynx appears normal, airway is visible, uvula is normal and midline. - Respiratory Exam Respiratory Exam: Clear to Auscultation Bilateral, NORMAL BREATHING PATTERN. absent: Rales, Rhonchi, Wheezes - Cardiovascular Exam Cardiovascular Exam: REGULAR RHYTHM, RRR, +S1, +S2. absent: JVD, Systolic Murmur - GI/Abdominal Exam GI & Abdominal Exam: Normal Bowel Sounds, Soft. absent: Tenderness - Extremities Exam Additional comments: +rash, track cheema (see skin exam) - Back Exam Back exam: NORMAL INSPECTION. absent: paraspinal tenderness - Psychiatric Exam Psychiatric exam: Depressed, Flat Affect - Skin Skin Exam: Dry, Intact Additional comments: +Non-blanchable flat, macular rash on arms, legs, and abdomen. Old skin changes present on legs. Track cheema with scabbing evident on ventral surface of upper extremities. On closer inspection, papules are erythematous and specifically located at site of hair follicles. Assessment and Plan - Assessment and Plan (Free Text) Assessment: Assessment: Medicine was consulted for a pruritic papular rash that patient states began on day of admission. Pruritus has resolved, per patient. Folliculitis, improved - Macrobid discontinued -> Cipro 500 mg PO BID - Pruritus resolved with Hydrocortisone 2.5% BID, continue to apply UTI, improved - Asymptomatic - Hemodynamically stable - No leukocytosis - Cipro 500 mg PO BID (2 more doses to complete antibiotics course on 01/17 @8: 00 and @18:00) - Urine cultures obtained Hyperkalemia, resolved - K+ 3.2 --> 3.7 (01/15) - Replete with K-Dur PO as needed Opioid Withdrawal/MDD with Psychotic Fx/Suicidal Ideation - Management per Psychiatry - Dr. Garcia Patient diagnosed with folliculitis, which has been resolving with the application of topical Hydrocortisone 2.5% BID to arms and forearms bilaterally and knees bilaterally. Continue to apply until rash has resolved. Patient also noted to have UTI, and patient is being treated Cipro 500mg BID. Tomorrow 01/18 are her 2 final doses scheduled for 8:00AM and 18:00PM, and will loraine the completion of her antibiotics course. Continue to encourage patient to get out of bed, and participate in group meetings. Medicine Team is signing off. Thank you for allowing me to participate in the care of your patient. Discussed with Dr. Osito Najera PGY-1 <Osito Duenas - Last Filed: 01/16/18 19:27> Objective - Vital Signs/Intake and Output Vital Signs (last 24 hours): Temp Pulse Resp BP Pulse Ox 97.5 F L 77 20 128/86 98 01/16/18 06:36 01/16/18 16:10 01/16/18 06:36 01/16/18 16:10 01/15/18 19:59 - Medications Medications: Current Medications Al Hydrox/Mg Hydrox/Simethicone (Maalox 30 Ml) 30 ml PO TID PRN PRN Reason: Indigestion / Heartburn Last Admin: 01/14/18 17:50 Dose: 30 ml Ciprofloxacin (Cipro) 500 mg PO ONCE ONE PRN Reason: Protocol Stop: 01/17/18 08:01 Ciprofloxacin (Cipro) 500 mg PO ONCE ONE PRN Reason: Protocol Stop: 01/17/18 18:01 Clonidine HCl (Catapres) 0.2 mg PO Q8 PRN PRN Reason: Agitation Last Admin: 01/15/18 20:00 Dose: 0.2 mg Divalproex Sodium (Depakote Dr) 250 mg PO BID [facility] Last Admin: 01/16/18 17:36 Dose: 250 mg Hydrocortisone (Cortizone 2.5%) 0 gm TOP BID [facility] Stop: 01/21/18 23:59 Last Admin: 01/16/18 17:38 Dose: Not Given Hydroxyzine HCl (Atarax) 25 mg PO Q6 PRN PRN Reason: Anxiety Last Admin: 01/16/18 09:56 Dose: 25 mg Loperamide HCl (Imodium) 2 mg PO Q8 PRN PRN Reason: Diarrhea Last Admin: 01/14/18 12:11 Dose: 2 mg Lorazepam (Ativan) 1 mg PO TID PRN PRN Reason: Agitation Last Admin: 01/16/18 18:41 Dose: 1 mg Methadone HCl (Methadone) 40 mg PO DAILY [facility]UARD PRN Reason: Taper Stop: 01/20/18 09:59 Last Admin: 01/16/18 09:55 Dose: 40 mg Methadone HCl (Methadone) 5 mg PO DAILY [facility] Stop: 01/20/18 23:59 Last Admin: 01/16/18 09:55 Dose: 5 mg Methadone HCl (Methadone) 5 mg PO RQ6 PRN PRN Reason: Symptoms of alcohol withdrawl Last Admin: 01/15/18 17:42 Dose: 5 mg Ondansetron HCl (Zofran Tab) 4 mg PO Q8 PRN PRN Reason: Nausea/Vomiting Last Admin: 01/14/18 12:11 Dose: 4 mg Pneumococcal Polyvalent Vaccine (Pneumovax 23 Vaccine) 0.5 ml IM .ONCE ONE Stop: 01/17/18 10:01 Pseudoephedrine HCl (Sudafed Tab) 60 mg PO QID PRN PRN Reason: Nasal/Sinus Congestion Quetiapine Fumarate (Seroquel) 100 mg PO HS [facility] Last Admin: 01/15/18 21:05 Dose: 100 mg Sertraline HCl (Zoloft) 25 mg PO DAILY [facility] Last Admin: 01/16/18 09:55 Dose: 25 mg Trazodone HCl (Desyrel) 50 mg PO HS [facility] Last Admin: 01/15/18 21:01 Dose: Not Given - Labs Labs: 01/15/18 08:33 01/15/18 08:33 Attending/Attestation - Attestation I have personally seen and examined this patient.: Yes I have fully participated in the care of the patient.: Yes I have reviewed all pertinent clinical information, including history, physical exam and plan: Yes Notes (Text): 01/16/18 19:24 The patient was seen and examined at 1:45 PM with the help of Psychiatry Nursing staff present. The folliculitis present on her bilateral upper and lower arms and bilateral knee area has flattened out. There are no areas of cellulitis. Patient is no longer complaining of pruritus. Continue the Hydrocortisone 2.5% cream to the affected areas 2x/day after she takes a shower in the morning. She has no urinary complaints: NO burning/pain with urination, NO feeling of incomplete evacuation of the bladder, NO increased frequency of urination and there is no flank pain (NO CVA tenderness on exam). Therefore she will be continued on the Ciprofloxacin 500 mg PO 2x/day through . Medicine Team will be signing of off. Osito Duenas D.O.
[2018-01-16] MEDS: Hydrocortisone 2.5% Oint (20 gm) TOP SCH ×2 (09:56→17:38)
--- NOTE | 2018-01-16 10:09 | PCM.PYCHPN ---
Psychiatric Progress Note - Psychiatric Progress Note Patient seen today, length of contact: 15 min Patient Chief Complaint: "Not feeling good" Problems Identified/Issues Discussed: The pt is seen, chart reviewed, case discussed with staff. As per the staff, was the patient continued to complain about the withdrawal symptoms. Pt reports depressed mood, and reports feelings of hopelessness and helplessness. She still reports irritability and agitation. Pt was not able to sleep well or eat properly. Pt still presenting with SI, but denies HI. The pt is compliant with medications but still present with side effects--nausea, dizziness, sweats, and anxiety Pt's rash on her back, arms and legs is subsiding. Pt needs more time to stabilize. Pt attends groups and activities. Support given, psycho-education provided. After care discussed. he Medication Change: Yes Medical Record Reviewed: Yes Mental Status Examination - Cognitive Function Orientation: Person, Place, Situation, Time Memory: Intact Attention: WNL Concentration: Poor Association: WNL Fund of Knowledge: Poor - Mood Mood: Depressed, Anxious - Affect Affect: Constricted, Depressed - Speech Speech: Soft - Formal Thought Process Formal Thought Process: Hallucinations - Suicidal Ideation Suicidal Ideation: No - Homicidal Ideation Homicidal Ideation: No Goal/Treatment Plan - Goal/Treatment Plan Need for Continued Stay: Severe depression anxiety, Severe functional impairment Progress Toward Problem(s) and Goals/Treatment Plan: Bipolar disorder depressed severe with psychotic features Opioid withdrawal Opioid use disorder, severe Cocaine use disorder severe MTD taper Atarax Seroquel 100 mg Start Zoloft 25 mg pO Q Daily As need medications All risks, benefits and alternatives of the meds discussed, and the pt agreed and understood. Attend groups and activities Individual therapy daily Psychoeducation and support daily Encourage compliance with meds and after care Refer to outpatient program Teach healthy lifestyle methods, i.e. diet, exercise, meditation Smoking cessation and patch if needed
[2018-01-16] MEDS: Divalproex 250 mg DR Tab PO SCH ×2 (10:42→17:36)
[2018-01-17] MEDS ORDERED: Pneumococcal 23-Valent Vaccine IM ONE (10:00)
[2018-01-17] MEDS: Divalproex 250 mg DR Tab PO SCH ×2 (10:11→18:16)
[2018-01-17] MEDS: Hydrocortisone 2.5% Oint (20 gm) TOP SCH ×2 (10:12→17:42)
[2018-01-18 07:30] LABS: BASO # 0.1 K/uL (0.0-0.2); BASO % 2.3 % (0.0-2.0); EOS # 0.5 K/uL (0.0-0.7); EOS % 9.2 % (0.0-4.0); HEMOGLOBIN 13.1 g/dL (11.0-16.0); LYMPH # 2.7 K/uL (1.0-4.3); LYMPH % 50.9 % (20.0-40.0); MEAN CELL VOLUME 86.1 fL (81.0-99.0); MEAN CORPUSCULAR HEMOGLOBIN 29.8 pg (27.0-31.0); MEAN CORPUSCULAR HGB CONC 34.6 g/dL (33.0-37.0); MEAN PLATELET VOLUME 8.3 fL (7.2-11.7); MONO # 0.6 K/uL (0.0-0.8); MONO % 11.6 % (0.0-10.0); NEUT # 1.4 K/uL (1.8-7.0); NRBC % 0.1 % (0.0-2.0); RBC 4.39 Mil/uL (3.80-5.20); RED CELL DISTRIBUTION WIDTH 15.7 % (11.5-14.5); WHITE BLOOD COUNT 5.3 K/uL (4.8-10.8)
[2018-01-18 08:05] LABS: ALB/GLOB RATIO 1.1 (1.0-2.1); ALT/SGPT 51 U/L (9-52); AST/SGOT 40 U/L (14-36); BLOOD UREA NITROGEN 18 mg/dL (7-17); CALCIUM 9.8 mg/dl (8.6-10.4); GFR NON-AFRICAN AMERICAN > 60
[2018-01-18] MEDS: Divalproex 250 mg DR Tab PO SCH ×2 (10:02→17:23)
[2018-01-18] MEDS: Hydrocortisone 2.5% Oint (20 gm) TOP SCH ×2 (10:09→18:32)
[2018-01-19] MEDS: Tmp-Smz 800 mg-160 mg DS Tab PO SCH ×2 (07:00→19:26)
[2018-01-19 08:55] LABS: BASO # 0.1 K/uL (0.0-0.2); EOS # 0.4 K/uL (0.0-0.7); EOS % 5.5 % (0.0-4.0); HEMOGLOBIN 13.7 g/dL (11.0-16.0); LYMPH # 2.6 K/uL (1.0-4.3); MEAN CELL VOLUME 87.3 fL (81.0-99.0); MEAN CORPUSCULAR HEMOGLOBIN 29.2 pg (27.0-31.0); MEAN CORPUSCULAR HGB CONC 33.5 g/dL (33.0-37.0); MEAN PLATELET VOLUME 8.6 fL (7.2-11.7); MONO # 0.6 K/uL (0.0-0.8); MONO % 8.3 % (0.0-10.0); NEUT # 4.1 K/uL (1.8-7.0); NEUT % 52.2 % (50.0-75.0); NRBC % 0.1 % (0.0-2.0); RBC 4.69 Mil/uL (3.80-5.20); RED CELL DISTRIBUTION WIDTH 16.1 % (11.5-14.5); WHITE BLOOD COUNT 7.9 K/uL (4.8-10.8)
[2018-01-19 09:08] LABS: ALB/GLOB RATIO 1.1 (1.0-2.1); ALBUMIN 4.1 g/dL (3.5-5.0); ALT/SGPT 59 U/L (9-52); AST/SGOT 43 U/L (14-36); BLOOD UREA NITROGEN 20 mg/dL (7-17); CALCIUM 9.5 mg/dl (8.6-10.4); GFR NON-AFRICAN AMERICAN > 60
[2018-01-19] MEDS: Divalproex 250 mg DR Tab PO SCH ×2 (10:49→18:03)
[2018-01-19] MEDS: Hydrocortisone 2.5% Oint (20 gm) TOP SCH ×2 (10:51→18:06)
[2018-01-19] MEDS: Aluminum Hydroxide/Magnesium Hydroxide Susp (30 mL) PO PRN (14:45)
--- NOTE | 2018-01-19 20:39 | PCM.PYCHPN ---
Psychiatric Progress Note - Psychiatric Progress Note Patient seen today, length of contact: 17 min Patient Chief Complaint: "I am very anxious, still depressed" Problems Identified/Issues Discussed: The pt is seen, chart reviewed, case discussed with staff. The pt is compliant with medications and reports no side-effects. Symptoms are improving but needs more time to stabilize. She is very borderline, histrionic and med-seeking She goes to distance to get what she wants incl. suicide threats, feigning fainting and even she broke a furniture yesterday in a rage! After care discussed, support and psychoeducation given. She will NOT get any extra meds unless she scores high on COWS (>10), as she has been here long enough she got 20 mg today, which looks enough. Medication Change: Yes (detox changes daily) Medical Record Reviewed: Yes Mental Status Examination - Cognitive Function Orientation: Person, Place, Situation, Time Memory: Intact Attention: WNL Concentration: Poor Association: WNL Fund of Knowledge: Poor - Mood Mood: Depressed, Anxious - Affect Affect: Constricted, Depressed - Speech Speech: Soft - Formal Thought Process Formal Thought Process: No Impairment - Suicidal Ideation Suicidal Ideation: No - Homicidal Ideation Homicidal Ideation: No Goal/Treatment Plan - Goal/Treatment Plan Need for Continued Stay: Discharge may exacerbated symptoms, Severe functional impairment Progress Toward Problem(s) and Goals/Treatment Plan: Continue medications Support and psychoeducation daily Attend groups and activities daily After care planning by [facility] Limit setting and structure Estimated Date of D/C: 01/22/18
[2018-01-20] MEDS: Tmp-Smz 800 mg-160 mg DS Tab PO SCH ×2 (06:53→19:17)
[2018-01-20 07:14] LABS: BASO # 0.1 K/uL (0.0-0.2); BASO % 1.1 % (0.0-2.0); EOS # 0.4 K/uL (0.0-0.7); EOS % 6.4 % (0.0-4.0); HEMOGLOBIN 12.9 g/dL (11.0-16.0); LYMPH # 2.8 K/uL (1.0-4.3); LYMPH % 46.3 % (20.0-40.0); MEAN CELL VOLUME 86.5 fL (81.0-99.0); MEAN CORPUSCULAR HEMOGLOBIN 29.5 pg (27.0-31.0); MEAN CORPUSCULAR HGB CONC 34.1 g/dL (33.0-37.0); MEAN PLATELET VOLUME 8.3 fL (7.2-11.7); MONO # 0.6 K/uL (0.0-0.8); MONO % 10.5 % (0.0-10.0); NEUT # 2.2 K/uL (1.8-7.0); NEUT % 35.7 % (50.0-75.0); NRBC % 0.1 % (0.0-2.0); RBC 4.38 Mil/uL (3.80-5.20); RED CELL DISTRIBUTION WIDTH 15.9 % (11.5-14.5); WHITE BLOOD COUNT 6.1 K/uL (4.8-10.8)
[2018-01-20 07:35] LABS: ALB/GLOB RATIO 1.2 (1.0-2.1); ALT/SGPT 57 U/L (9-52); AST/SGOT 41 U/L (14-36); BLOOD UREA NITROGEN 23 mg/dL (7-17); CALCIUM 9.5 mg/dl (8.6-10.4); GFR NON-AFRICAN AMERICAN > 60
[2018-01-20] MEDS: Hydrocortisone 2.5% Oint (20 gm) TOP SCH ×2 (10:02→17:17)
[2018-01-20] MEDS: Divalproex 250 mg DR Tab PO SCH ×3 (10:16→17:08)
--- NOTE | 2018-01-20 10:47 | PCM.PYCHPN ---
Psychiatric Progress Note - Psychiatric Progress Note Patient seen today, length of contact: 15 min Patient Chief Complaint: " I am still withdrawing" Problems Identified/Issues Discussed: The pt is seen, chart reviewed, case discussed with staff. Pt reports some improvement in her mood but still reports at times feelings of hopelessness and helplessness. She still reports withdrawal symptoms including joint pains, anxiety, irritability, headaches and cramps. The pt is compliant with medications and denies any side effects. Pt needs more time to stabilize. Pt attends groups and activities. Support given, psycho-education provided. After care discussed. Medication Change: Yes Medical Record Reviewed: Yes Mental Status Examination - Cognitive Function Orientation: Person, Place, Situation, Time Memory: Intact Attention: WNL Concentration: Poor Association: WNL Fund of Knowledge: Poor - Mood Mood: Depressed, Anxious - Affect Affect: Constricted, Depressed - Speech Speech: Soft - Formal Thought Process Formal Thought Process: Hallucinations - Suicidal Ideation Suicidal Ideation: No - Homicidal Ideation Homicidal Ideation: No Goal/Treatment Plan - Goal/Treatment Plan Need for Continued Stay: Severe depression anxiety, Severe functional impairment Progress Toward Problem(s) and Goals/Treatment Plan: Bipolar disorder depressed severe with psychotic features Opioid withdrawal Opioid use disorder, severe Cocaine use disorder severe MTD taper Atarax Seroquel 200 mg Zoloft 50 mg pO Q Daily Start Neurontin 300 mg PO TID As need medications All risks, benefits and alternatives of the meds discussed, and the pt agreed and understood. Attend groups and activities Individual therapy daily Psychoeducation and support daily Encourage compliance with meds and after care Refer to outpatient program Teach healthy lifestyle methods, i.e. diet, exercise, meditation Smoking cessation and patch if needed Estimated Date of D/C: 01/22/18
[2018-01-21] MEDS: Tmp-Smz 800 mg-160 mg DS Tab PO SCH ×2 (07:00→20:43)
[2018-01-21] MEDS: Divalproex 250 mg DR Tab PO SCH ×2 (10:30→17:30)
[2018-01-21] MEDS: Hydrocortisone 2.5% Oint (20 gm) TOP SCH ×2 (11:24→17:59)
--- NOTE | 2018-01-21 12:08 | PCM.PYCHPN ---
Psychiatric Progress Note - Psychiatric Progress Note Patient seen today, length of contact: 15 min Patient Chief Complaint: I am feeling suicidal.' Problems Identified/Issues Discussed: The pt is seen, chart reviewed, case discussed with staff. Pt reports depressed mood, but reports some improvement in the feelings of hopelessness and helplessness. As per the staff, was the patient continued to complain about the withdrawal symptoms including nausea, sweating, and anxiety. Pt still reports thoughts of harming herself. She is compliant with medications but denies any side effects. Pt needs more time to stabilize. Pt attends groups and activities. Support given, psycho-education provided. After care discussed. Medication Change: Yes Medical Record Reviewed: Yes Mental Status Examination - Cognitive Function Orientation: Person, Place, Situation, Time Memory: Intact Attention: WNL Concentration: Poor Association: WNL Fund of Knowledge: Poor - Mood Mood: Depressed, Anxious - Affect Affect: Constricted, Depressed - Speech Speech: Soft - Formal Thought Process Formal Thought Process: No Impairment - Suicidal Ideation Suicidal Ideation: No - Homicidal Ideation Homicidal Ideation: No Goal/Treatment Plan - Goal/Treatment Plan Need for Continued Stay: Severe depression anxiety, Severe functional impairment Progress Toward Problem(s) and Goals/Treatment Plan: Bipolar disorder depressed severe with psychotic features Opioid withdrawal Opioid use disorder, severe Cocaine use disorder severe MTD taper Atarax Seroquel 200 mg Zoloft 100 mg pO Q Daily Gabapentin 600 mg PO TID As need medications All risks, benefits and alternatives of the meds discussed, and the pt agreed and understood. Attend groups and activities Individual therapy daily Psychoeducation and support daily Encourage compliance with meds and after care Refer to outpatient program Teach healthy lifestyle methods, i.e. diet, exercise, meditation Smoking cessation and patch if needed Estimated Date of D/C: 01/23/18 - Smoking Cessation Smoking Cessation Initiated: No
[2018-01-22] MEDS: Tmp-Smz 800 mg-160 mg DS Tab PO SCH ×2 (06:33→19:26)
[2018-01-22 06:40] VITALS: O2SAT 100
[2018-01-22] MEDS: Divalproex 250 mg DR Tab PO SCH ×2 (10:44→17:04)
--- NOTE | 2018-01-22 11:26 | PCM.PYCHPN ---
Psychiatric Progress Note - Psychiatric Progress Note Patient seen today, length of contact: 15 min Patient Chief Complaint: I am feeling suicidal.' Problems Identified/Issues Discussed: The pt is seen, chart reviewed, case discussed with staff. As per the staff, since pt is tapering off from Methadone, she is becoming more irritable and agitated. Today she got Methadone 5 mg, she started making suicidal statements, if she is not getting any methadone, she will kill herself. She is reporting depressed mood, and feelings of hopelessness and helplessness. As per the staff, was the patient continued to complain about the withdrawal symptoms She is compliant with medications but denies any side effects. Pt needs more time to stabilize. Pt attends groups and activities. Support given, psycho-education provided. After care discussed. Medication Change: Yes Medical Record Reviewed: Yes Mental Status Examination - Cognitive Function Orientation: Person, Place, Situation, Time Memory: Intact Attention: WNL Concentration: Poor Association: WNL Fund of Knowledge: Poor - Mood Mood: Depressed, Anxious - Affect Affect: Constricted, Depressed - Speech Speech: Soft - Formal Thought Process Formal Thought Process: No Impairment - Suicidal Ideation Suicidal Ideation: No - Homicidal Ideation Homicidal Ideation: No Goal/Treatment Plan - Goal/Treatment Plan Need for Continued Stay: Severe depression anxiety, Severe functional impairment Progress Toward Problem(s) and Goals/Treatment Plan: Bipolar disorder depressed severe with psychotic features Opioid withdrawal Opioid use disorder, severe Cocaine use disorder severe Start 1:1 MTD taper - will be completed today Atarax Seroquel 200 mg Zoloft 100 mg pO Q Daily Gabapentin [address] 500 mg PO BID As need medications All risks, benefits and alternatives of the meds discussed, and the pt agreed and understood. Attend groups and activities Individual therapy daily Psychoeducation and support daily Encourage compliance with meds and after care Refer to outpatient program Teach healthy lifestyle methods, i.e. diet, exercise, meditation Smoking cessation and patch if needed Estimated Date of D/C: 01/23/18 - Smoking Cessation Smoking Cessation Initiated: No
--- NOTE | 2018-01-22 12:20 | PCM.BM ---
Treatment Plan Problems - Problems identified on initial assessmt Depression Date Initiated: 01/14/18 Time Initiated: 11:04 Assessment reference: NA Status: Active Substance Abuse Date Initiated: 01/14/18 Time Initiated: 11:04 Assessment reference: NA Status: Active Treatment assets and liabiliti Patient Assests: cooperative, ADL independent, physically healthy, negotiates basic needs, cognitively intact Patient Liabilities: live alone (Homeless), financial problems, substance abuse (Opiates, Methadone, Cocaine and Benzo), medical problems (+Hep C, HTN, Asthma) - Milieu Protocol Maintain good personal hygiene: daily Encourage regular showers, daily Remind patient to perform daily oral care, daily Assist patient to perform ADL's (Self) Conduct patient checks and document Observation sheet: Q15 minutes (Safety) Maintain personal safety: every shift Educate patient to report safety concerns to staff, every shift Monitor environment for contraband/sharps Medication safety: Monitor for expected outcome, potential side effects: every shift, Assess barriers to learning: every shift, Assess readiness for medication education: every shift Milieu Narrative: Bipolar disorder depressed severe with psychotic features Opioid withdrawal Opioid use disorder, severe Cocaine use disorder severe MTD taper Atarax Seroquel 200 mg Zoloft 100 mg pO Q Daily Gabapentin 600 mg PO TID As need medications All risks, benefits and alternatives of the meds discussed, and the pt agreed and understood. Attend groups and activities Individual therapy daily Psychoeducation and support daily Encourage compliance with meds and after care Refer to outpatient program Teach healthy lifestyle methods, i.e. diet, exercise, meditation Smoking cessation and patch if needed Family Contact Family involvement: Patient does not wish Family/SO involvement Family contact: Patient declines to allow family contact at present - Goals for Treatment Patient goals for treatment: "I want to go to a rehab program." Discharge/Continuing Care - Education Needs Education Needs: Patient Medication, Patient Diagnosis/Disease Process, Patient Coping Skills - Discharge Discharge Criteria: Free of Suicidal thoughts, Normal sleep pattern, Ability to care for self, No longer exhibiting s/s of withdrawal, Reduction of target s ymptoms Discharge to:: Substance Abuse Rehab - Treatment Team Participation Patient/Family/SO Statement: Bipolar disorder depressed severe with psychotic features Opioid withdrawal Opioid use disorder, severe Cocaine use disorder severe MTD taper Atarax Seroquel 200 mg Zoloft 100 mg pO Q Daily Gabapentin 600 mg PO TID As need medications All risks, benefits and alternatives of the meds discussed, and the pt agreed and understood. Attend groups and activities Individual therapy daily Psychoeducation and support daily Encourage compliance with meds and after care Refer to outpatient program Teach healthy lifestyle methods, i.e. diet, exercise, meditation Smoking cessation and patch if needed Discussed with Family/SO: No Was Patient/Family/SO present at Treatment Team Meeting: Yes Treatment Plan Review - Problem Depression Time Initiated: : Substance Abuse Time Initiated: : - Discharge / Continuing Care Discharge to:: Substance Abuse Rehab, Other Behavioral Health Services: Intensive Outpatient, Residential treatment Health Needs: Follow up care/test, Medications/Rx, Alcohol/Drug treatment
[2018-01-23] MEDS: Tmp-Smz 800 mg-160 mg DS Tab PO SCH (06:35)
[2018-01-23 06:50] VITALS: RESP 18; TEMP 97.6
[2018-01-23 08:54] VITALS: BP 113/74; PULSE 82
[2018-01-23] MEDS: Divalproex 250 mg DR Tab PO SCH (09:47)
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
== END 2018-01-23 10:20 | disposition home or self-care (01) | DRG 885 ==
LOC: C.ER 22:43 → C.9E 01-14 03:18 → C.5E 01-14 08:29
PROVIDERS: ADMIT Psychiatry & Neurology Psychiatry; ATTEND Psychiatry & Neurology Psychiatry
PROC: GZ3ZZZZ Medication Management (ICD-10-PCS; principal; 2018-01-14)
PROC: HZ81ZZZ Medication Management for Substance Abuse Treatment, Methadone Maintenance (ICD-10-PCS; 2018-01-14)
PROC: HZ2ZZZZ Detoxification Services for Substance Abuse Treatment (ICD-10-PCS; 2018-01-14)
PROC: GZHZZZZ Group Psychotherapy (ICD-10-PCS; 2018-01-14)
PROC: GZ56ZZZ Individual Psychotherapy, Supportive (ICD-10-PCS; 2018-01-14)
PROC: HZ56ZZZ Individual Psychotherapy for Substance Abuse Treatment, Psychoeducation (ICD-10-PCS; 2018-01-14)
DX: F31.5 Bipolar disorder, current episode depressed, severe, with psychotic features (principal); F11.23 Opioid dependence with withdrawal; F14.20 Cocaine dependence, uncomplicated; R45.851 Suicidal ideations; E87.5 Hyperkalemia; F41.0 Panic disorder [episodic paroxysmal anxiety]; F43.10 Post-traumatic stress disorder, unspecified; F90.9 Attention-deficit hyperactivity disorder, unspecified type; F17.210 Nicotine dependence, cigarettes, uncomplicated; N39.0 Urinary tract infection, site not specified; L29.9 Pruritus, unspecified; L73.9 Follicular disorder, unspecified; I10 Essential (primary) hypertension; J45.909 Unspecified asthma, uncomplicated; B18.2 Chronic viral hepatitis C; Z59.0 Homelessness; Z88.0 Allergy status to penicillin

== ENCOUNTER 2018-01-24 10:32 | Emergency (ER) | payer MEDICAID ==
[2018-01-24 10:37] VITALS: BMI 30.1
--- NOTE | 2018-01-24 11:21 | C.PDOC ---
History Of Present Illness 32 y/o female presents to ED for evaluation of suicidal ideation. Pt admits to substance abuse. Pt was recently discharged from home. Denies HI, or any active physical complaints at this time. Time Seen by Provider: 01/24/18 10:51 Chief Complaint (Nursing): Psychiatric Evaluation History Per: Patient History/Exam Limitations: no limitations Past Medical History Reviewed: Historical Data, Nursing Documentation, Vital Signs Vital Signs: Last Vital Signs Temp 98.6 F 01/24/18 10:37 Pulse 109 H 01/24/18 10:37 Resp 20 01/24/18 10:37 BP 147/94 H 01/24/18 10:37 Pulse Ox 97 01/24/18 10:37 - Medical History PMH: Asthma, Depression, Hepatitis (C), HTN, Post Traumatic Stress Disorder Denies: Diabetes, HIV, Seizures, Sexually Transmitted Disease Family History: States: Unknown Family Hx - Social History Hx Alcohol Use: No Hx Substance Use: Yes - Immunization History Hx Tetanus Toxoid Vaccination: Yes Hx Influenza Vaccination: Yes Hx Pneumococcal Vaccination: No Review Of Systems Except As Marked, All Systems Reviewed And Found Negative. Constitutional: Negative for: Fever, Chills Cardiovascular: Negative for: Chest Pain Respiratory: Negative for: Shortness of Breath Psych: Positive for: Suicidal ideation Physical Exam - Physical Exam Appears: Non-toxic, No Acute Distress Skin: Normal Color, Warm, Dry Head: Atraumatic, Normacephalic Eye(s): bilateral: Normal Inspection, Other (tearful) Oral Mucosa: Moist Neck: Supple Cardiovascular: Rhythm Regular Respiratory: Normal Breath Sounds, No Rales, No Rhonchi, No Wheezing Gastrointestinal/Abdominal: Soft, No Tenderness Extremity: Normal ROM Neurological/Psych: Oriented x3, Normal Speech ED Course And Treatment O2 Sat by Pulse Oximetry: 97 (RA) Pulse Ox Interpretation: Normal Medical Decision Making Medical Decision Making: Plan: Blood work Urinalysis 1:[address] Estrada evaluated pt at bedside and instructed to discharge her home. Disposition Discussed With : Luke Estrada Doctor Will See Patient In The: ED - Disposition Disposition: HOME/ ROUTINE Disposition Time: 12:05 Condition: STABLE Additional Instructions: follow up with methadone program as discussed today continue your home medications return to ER if symptoms worsens or progress Instructions: Polysubstance Abuse (DC) Forms: [facility] ([place]), General Discharge Instructions - Clinical Impression Clinical Impression: Substance abuse - Scribe Statement The provider has reviewed the documentation as recorded by the Scribe KP All medical record entries made by the Scribe were at my direction and personally dictated by me. I have reviewed the chart and agree that the record accurately reflects my personal performance of the history, physical exam, medical decision making, and the department course for this patient. I have also personally directed, reviewed, and agree with the discharge instructions and disposition.
[2018-01-24 12:20] VITALS: BP 150/82; PULSE 89; RESP 18; TEMP 99; O2SAT 100
== END 2018-01-24 12:30 | disposition home or self-care (01) ==
LOC: C.ER 10:32
DX: F19.10 Other psychoactive substance abuse, uncomplicated (principal)